=== PATIENT | male | born 1970 | race Caucasian/White ===

== ENCOUNTER 2020-09-06 12:32 | Emergency (ER) | payer BC ==
[2020-09-06 19:19] LABS: HEMOGLOBIN 14.6 gm/dl (14.0-17.5); RED BLOOD COUNT 4.67 M/UL (4.20-5.50); WHITE BLOOD COUNT 5.1 K/UL (4.5-11.0)
[2020-09-06 19:35] LABS: BUN/CREATININE RATIO 13 (0-10)
== END 2020-09-06 21:40 | disposition home or self-care (01) ==
LOC: ER1 12:32
PROVIDERS: Physician Assistant
DX: Z23 Encounter for immunization (principal); U07.1 COVID-19; I10 Essential (primary) hypertension; Z88.0 Allergy status to penicillin
CPT/HCPCS: 71045; 80053; 85025; 99283; M0245; U0002

== ENCOUNTER → 2021-07-19 | Outpatient (CLI) | payer BC | LOC: KOH-I 14:20 | DX: R19.5 Other fecal abnormalities (principal) | CPT/HCPCS: 74018 ==

== ENCOUNTER → 2021-11-10 | Outpatient (CLI) | payer BC | LOC: KOH-I 15:31 | DX: M25.561 Pain in right knee (principal) | CPT/HCPCS: 73562 ==